=== PATIENT | male | born 1960 | race Asian ===

== ENCOUNTER 2024-02-07 22:19 | Emergency (ER) | payer MEDICAID, SELFPAY ==
[2024-02-07 22:20] VITALS: BMI 27.4
--- NOTE | 2024-02-07 22:30 | PC.NURSE ---
Pt to room 4 at this time from lobby, assumed care.
--- NOTE | 2024-02-07 22:32 | XR_ITS ---
Examination: AP chest single view Technique: AP portable upright chest single view Exam date and time: February 07, 2024 2130 hrs. Indications: Onset shortness of breath today,. Findings: Normal heart size No pneumonia or pulmonary edema Prominent osteopenia Impression: No pneumonia or pulmonary edema
--- NOTE | 2024-02-07 22:32 | XR_ITS ---
Examination: AP lateral soft tissue neck 2 views Technique: Portable AP lateral soft tissue neck 2 views Exam date and time: February 07, 2024 1041 hrs. Indications: Foreign body sensation in the throat today Findings: No prevertebral soft tissue prominence No opaque foreign body seen Significant degenerative disc disease C4-C5, C5-C6 Impression: No opaque foreign body seen
--- NOTE | 2024-02-07 22:33 | EDNOTE_ITS ---
ED General RME/HPI General Chief complaint: General Adult/Misc Complain Stated complaint: CHOKING ON BEEF Time Seen by Provider: 02/07/24 22:30 Arrival date/time: 02/07/24 22:19 RME / HPI RME / HPI narrative: 63-year-old male patient with significant history of hypertension, came in for evaluation regarding foreign body sensation throat. Patient was eating beef, happened about 30 minutes prior to ER visit forgot to chew the beef and swallowed a piece, resulting into choking sensation, unable to get it out. Patient denies any cough, denies any shortness of breath. Denies any other complaints no medication was taken prior to arrival. Patient had multiple episode of foreign body/esophagus stuck in the throat however he will just drink oil and eventually will just go down however this time it did not. Related Data Home Medications ?Medication ?Instructions ?Recorded ?Confirmed simvastatin 40 mg tablet 40 mg PO QDAY 05/11/19 01/31/22 amlodipine 10 mg-benazepril 40 mg 1 cap PO QDAY 05/04/21 01/31/22 capsule diclofenac potassium 50 mg tablet 50 mg PO QDAY PRN Pain 05/04/21 01/31/22 Allergies Allergy/AdvReac Type Severity Reaction Status Date / Time No Known Allergies Allergy Verified 02/07/24 22:20 Review of Systems Review of Systems Narrative Review of Systems: Review of system reviewed and within normal limits except mentioned in HPI ED Exam Narrative Physical exam: VITAL SIGNS: Reviewed. GENERAL APPEARANCE: Alert and interactive, follows commands, no acute distress, HEAD AND FACE: Non-traumatic. ENT: PERRL, pink conjunctivitis, eyelid no trauma, Mucous membrane moist. NECK: Supple, nontender, no nuchal rigidity. CHEST: No tenderness, no crepitus, no paradoxical movement, no retractions. LUNGS: Clear, well ventilated, symmetric, no rales, no wheezing, no ronchi, no stridor, good breath sounds bilaterally. HEART: Regular rate, regular rhythm, no murmur, no gallops. ABDOMEN: Soft, positive bowel sounds, nondistended, no guarding, nontender, no rebound, no masses, RECTAL: Deferred. GENITAL: Deferred. NEUROLOGICAL: Gross motor function intact sensory function intact, Appropriate for age. MUSCULOSKELETAL: low back nontender, full range of motion. EXTREMITIES: Nontender, full range of motion. SKIN: Color pink, dry, no rash, no lacerations, no abrasions, no contusions. LYMPHATICS: Deferred. Course Quality Measures none Orders Category Date Time Status COVID-19 Screening Questionnaire NOW Care 02/07/24 23:08 Active Decision to Admit X1 Care 02/07/24 23:08 Completed EKG (ED ONLY) *Do not use* NOW Care 02/07/24 23:03 Active NPO NOW Care 02/07/24 23:08 Active Diet NPO (NOW) Diet 02/07/24 23:08 Active EKG (ED Only) Stat Exams 02/07/24 23:03 Draft XR chest 1V Stat Exams 02/07/24 22:32 Completed XR soft tissue neck Stat Exams 02/07/24 22:32 Completed CBC [CBC] Stat Lab 02/07/24 23:13 Received CMP [Comprehensive Metabolic Panel] Stat Lab 02/07/24 23:13 Received Diazepam Inj [Valium Inj] Med 02/07/24 22:30 Discontinued 5 mg IVP X1 ONE Glucagon Inj Med 02/07/24 22:30 Discontinued 2 mg IVP X1 ONE Sodium Chloride 0.9% 1000 ml [Ns] 1,000 ml Med 02/07/24 22:30 Active IV 999 mls/hr Vital Signs Vital signs: Vital Signs Temperature 98.7 F 02/07/24 22:35 Pulse Rate 94 02/07/24 22:35 Respiratory Rate 19 02/07/24 22:35 Blood Pressure 134/88 H 02/07/24 22:35 Pulse Oximetry (%) 97 02/07/24 22:35 Oxygen Delivery Method Room Air 02/07/24 22:35 [facility] Patient data External records reviewed:: None Clinical information provided by:: patient and family Social determinants that could affect healthcare access:: none Patient has the following chronic illnesses:: Hypertension How is presenting disease/condition affected by chronic disease/condition?: u neffected by Evaluation data The following diagnostics were reviewed and interpreted by me:: lab results, radiology exam(s) and EKG tracing(s) Lab and/or radiology exams considered but not ordered:: None Interpretation Summary: EKG showed sinus rhythm, ventricular rate of 95 bpm, no ST segment ovation depression noted. Chest x-ray came back unremarkable. X-ray of the soft tissue neck came back unremarkable. Medications Medications considered but not ordered:: None Medication administrations:: Medication Administration History Sodium Chloride (Ns) 1,000 mls @ 999 mls/hr IV .Q1H1M ONE Stop: 02/07/24 23:30 Last Admin: 02/07/24 22:36 Dose: 999 mls/hr Documented By: KG Discontinued Medications Diazepam (Diazepam Inj 5 Mg/Ml Vial 2 Ml) 5 mg IVP X1 ONE Stop: 02/07/24 22:31 Last Admin: 02/07/24 22:47 Dose: 5 mg Documented By: KG Glucagon (Glucagon Inj 1 Mg Vial) 2 mg IVP X1 ONE Stop: 02/07/24 22:31 Last Admin: 02/07/24 22:36 Dose: 2 mg Documented By: KG Glucagon Valium and IV fluids Consultations Consultation(s) initiated? (list below): Yes Consultation #1 (Physician, Specialty, Details): Consulted Dr. Vasquez advised me to admit the patient however patient was able to cough out the foreign body we called back Dr. Vasquez thank you Dr. Vasquez Diagnosis Differential Diagnosis ED Complaint MDM: Foreign body stuck in the esophagus, foreign body sensation, Most likely diagnosis given after review of the tests above:: Foreign body stuck in esophagus, resolved Admission Indicated Admission indicated?: not indicated Explain why admission is indicated or not indicated:: Stable for discharge Admission Request Was there a request for admission?: No Disposition Plan Disposition Plan: Discharge Discharge Attestation Discharge Attestation: The patient and all family members were given an opportunity to ask questions and understood the discharge instructions. Discharge instructions specifically effects, indications for sooner follow up or return to the emergency department, and the expected course of current diagnosis. Patient condition: Stable Medical Decision Making MDM Narrative MDM Narrative: Patient was given glucagon, IV fluids for hydration and Valium, after I talked to Dr. Vasquez, GI specialist on-call, patient was able to spit out the foreign body. Now patient is swallowing normal. Wanted to go home. Differential Diagnosis Differential Diagnosis: Foreign body stuck in the esophagus, foreign body sensation, Lab Data 02/07/24 23:13 02/07/24 23:13 Discharge Plan Plan Patient Disposition: HOME (Self Care) Disposition Comment: Stable Prescriptions/Referrals Prescriptions/Med Rec: No Action simvastatin 40 mg Tablet 40 mg PO QDAY diclofenac potassium 50 mg tablet 50 mg PO QDAY PRN (Reason: Pain) Patient Comments: TAKE ONE TABLET BY MOUTH EVERY DAY amlodipine-benazepril 10-40 mg capsule 1 cap PO QDAY Patient Comments: TAKE ONE CAPSULE BY MOUTH EVERY DAY Problem List Clinical Impression: Foreign body in esophagus Patient/Caregiver Discharge Instructions Discharge Activity: activity as tolerated Education Materials: ED Swallowed Foreign Body (Adult) Additional Instructions: Thank you for the opportunity for serving you today. You are stable for discharged . You are advised to: Follow-up with your PCP in 1 to 2 days and asked for referral to GI specialist Return to ED for worsening of symptoms Increase oral fluids Print Language: Latvian Stand Alone Forms: Adeline Award Info., Patient Portal Info Letter PA/CLINICAL PSYCHIATRIST Supervising Physician PA/CLINICAL PSYCHIATRIST Supervising Physician: MD Ashia
[2024-02-07 22:35] VITALS: BP 134/88; PULSE 94; RESP 19; TEMP 37.1; O2SAT 97
[2024-02-07] MEDS: SODIUM CHLORIDE 0.9% 1000 ML 1,000 ML 999 ML IV (22:36)
[2024-02-07] MEDS: GLUCAGON INJ 1 MG VIAL 2 MG IVP (22:36)
--- NOTE | 2024-02-07 22:43 | PC.NURSE ---
XRAY at the bedside.
[2024-02-07] MEDS: DIAZEPAM INJ 5 MG/ML VIAL 2 ML IVP (22:47)
[2024-02-07 22:51] VITALS: BP 133/85; PULSE 88; RESP 20; O2SAT 95
--- NOTE | 2024-02-07 23:03 | EKG_ITS ---
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
[2024-02-07 23:29] LABS: Basophils % (Auto) 1 % (0-2.5); Eosinophils # (Auto) 0.5 Thou/mm3 (0.0-0.5); Eosinophils % (Auto) 9 % (0-10); Hematocrit 40.1 % (41.0-53.0); Hemoglobin 13.2 g/dL (13.5-16.0); Immature Granulocytes % (Auto) 0 % (0-0); Immature Granulocytes Auto 0.02 Thou/mm3 (0.00-0.00); Lymphocytes % (Auto) 17 % (10-50); Mean Corpuscular HGB Conc 32.9 g/dl (31.0-37.0); Mean Corpuscular Hemoglobin 30.5 pg (25.0-35.0); Mean Corpuscular Volume 93 fL (80-100); Monocytes # (Auto) 0.9 Thou/mm3 (0.0-0.8); Monocytes % (Auto) 15 % (0-12); Neutrophils # (Auto) 3.3 Thou/mm3 (1.8-7.7); Neutrophils % (Auto) 58 % (37-80); Nucleated Red Blood Cell % 0 /100 WBC (0); Platelet Count 231 Thou/mm3 (140-440); RDW Standard Deviation 49.3 fL (35.1-43.9); Red Blood Count 4.33 Miln/mm3 (4.50-5.90); White Blood Count 5.7 Thou/mm3 (3.8-10.6)
[2024-02-07 23:48] VITALS: BP 102/76; PULSE 84; RESP 20; O2SAT 97
[2024-02-07 23:48] LABS: Alanine Aminotransferase 40 U/L (10-49); Albumin/Globulin Ratio 1.6 (1.2-2.2); Alkaline Phosphatase 71 U/L (46-116); Anion Gap 5 (7-16); Aspartate Amino Transferase 22 U/L (0-34); BUN/Creatinine Ratio 15 Ratio (12-20); Bilirubin,Total 0.4 mg/dL (0.3-1.2); Blood Urea Nitrogen 18 mg/dL (9-23); Calcium 8.7 mg/dL (8.3-10.6); Calcium (Corrected) 8.7 mg/dL (8.5-10.1); Carbon Dioxide 25.6 mMol/L (20.0-31.0); Chloride 111 mMol/L (98-107); Creatinine (Component) 1.2 mg/dL (0.6-1.3); Estimated Creatinine Clearance 62.4 mL/min (>60); Globulin 2.5 gm/dL (2.3-3.5); Glucose 118 mg/dL (74-106); Osmolality,Calculated 286 (275-295); Potassium 3.1 mMol/L (3.4-5.1); Sodium 142 mMol/L (136-145); Total Protein 6.5 gm/dL (5.7-8.2); eGFR > 60 See Note
== END 2024-02-07 23:48 | disposition home or self-care (01) ==
LOC: SERX 02-08 00:05
PROVIDERS: Nurse Practitioner Family; Emergency Provider Emergency Medicine
DX: T18.108A Unspecified foreign body in esophagus causing other injury, initial encounter (principal); R06.02 Shortness of breath; W44.9XXA Unspecified foreign body entering into or through a natural orifice, initial encounter; I49.3 Ventricular premature depolarization; I10 Essential (primary) hypertension
CPT/HCPCS: 36415; 70360; 71045; 80053; 85025; 93005; 96361; 96374; 96375; 99284; J1610; J3360; J7030

== ENCOUNTER 2024-03-04 10:10 | Emergency (ER) | payer MEDICAID, SELFPAY ==
[2024-03-04 10:21] VITALS: BP 149/97; PULSE 83; RESP 16; TEMP 36.7; O2SAT 98; BMI 30.3
--- NOTE | 2024-03-04 10:39 | XR_ITS ---
Examination: CT abdomen and pelvis without contrast. Coronal 3-D reconstructions. Sagittal 2-D reconstructions. Date and time of exam: March 04, 2024 1126 hours INDICATIONS: Left lower abdominal pain onset today CTDI: vol (mGy): 10.2 DLP: (mGycm): 620 Technique: Axial images of the abdomen have been obtained, 3 mm slice thickness Intravenous contrast material has not been administered. Low dose protocols were performed. One or more of the following dose reduction techniques were used; automated exposure control, adjustment of the mA and/or KV according to patient size, use of iterative reconstruction technique. Findings: Minimal pericardial effusion No focal liver or splenic lesions Contracted gallbladder No pancreatic or adrenal mass Moderate left renal parenchymal scar formation 20 mm posterior right renal cyst No hydronephrosis or ureteral calculi Aorta normal size Normal appendix Colonic diverticulosis Acute diverticulitis distal descending colon with no peridiverticular abscess Contracted urinary bladder Moderate prostatomegaly Moderate osteopenia IMPRESSION: Acute diverticulitis distal descending colon, no peridiverticular abscess
--- NOTE | 2024-03-04 10:40 | PD.EDRME ---
Rapid Medical Screening Exam RME Arrival date/time: 03/04/24 10:10 63-year-old male presents emergency department complaint of abdominal pain Chief Complaint: Abdominal Pain Time Seen by Provider: 03/04/24 10:14 Vital signs: Vital Signs Temperature 98.1 F 03/04/24 10:21 Pulse Rate 83 03/04/24 10:21 Respiratory Rate 16 03/04/24 10:21 Blood Pressure 149/97 H 03/04/24 10:21 Pulse Oximetry (%) 98 03/04/24 10:21 Oxygen Delivery Method Room Air 03/04/24 10:21
[2024-03-04 11:08] LABS: Basophils # (Auto) 0.1 Thou/mm3 (0.0-0.2); Basophils % (Auto) 1 % (0-2.5); Eosinophils # (Auto) 0.5 Thou/mm3 (0.0-0.5); Eosinophils % (Auto) 5 % (0-10); Hematocrit 45.4 % (41.0-53.0); Hemoglobin 14.7 g/dL (13.5-16.0); Immature Granulocytes % (Auto) 1 % (0-0); Immature Granulocytes Auto 0.06 Thou/mm3 (0.00-0.00); Lymphocytes % (Auto) 10 % (10-50); Mean Corpuscular HGB Conc 32.4 g/dl (31.0-37.0); Mean Corpuscular Hemoglobin 29.8 pg (25.0-35.0); Mean Corpuscular Volume 92 fL (80-100); Monocytes # (Auto) 1.3 Thou/mm3 (0.0-0.8); Monocytes % (Auto) 12 % (0-12); Neutrophils # (Auto) 7.5 Thou/mm3 (1.8-7.7); Neutrophils % (Auto) 72 % (37-80); Nucleated Red Blood Cell % 0 /100 WBC (0); Platelet Count 287 Thou/mm3 (140-440); RDW Standard Deviation 51.2 fL (35.1-43.9); Red Blood Count 4.94 Miln/mm3 (4.50-5.90); White Blood Count 10.5 Thou/mm3 (3.8-10.6)
[2024-03-04 11:24] LABS: Alanine Aminotransferase 19 U/L (10-49); Albumin, Serum 4.7 gm/dL (3.4-4.8); Albumin/Globulin Ratio 1.7 (1.2-2.2); Alcohol, Blood Medical < 3.0 mg/dL (0-10.0); Alkaline Phosphatase 79 U/L (46-116); Anion Gap 7 (7-16); Aspartate Amino Transferase 16 U/L (0-34); BUN/Creatinine Ratio 12 Ratio (12-20); Bilirubin,Total 0.4 mg/dL (0.3-1.2); Blood Urea Nitrogen 12 mg/dL (9-23); Calcium 9.4 mg/dL (8.3-10.6); Calcium (Corrected) 9.4 mg/dL (8.5-10.1); Carbon Dioxide 28.9 mMol/L (20.0-31.0); Chloride 103 mMol/L (98-107); Estimated Creatinine Clearance 78.4 mL/min (>60); Globulin 2.8 gm/dL (2.3-3.5); Glucose 69 mg/dL (74-106); Lipase 54 U/L (12-53); Osmolality,Calculated 275 (275-295); Potassium 3.9 mMol/L (3.4-5.1); Sodium 139 mMol/L (136-145); Total Protein 7.5 gm/dL (5.7-8.2); eGFR > 60 See Note
--- NOTE | 2024-03-04 12:27 | PD.EDABDPN ---
ED Abdominal Pain RME/HPI General Chief Complaint: Abdominal Pain Stated complaint: LEFT LOWER AB PAIN X3 DAYS Time seen by provider: 03/04/24 10:14 Arrival date/time: 03/04/24 10:10 63-year-old male presents emergency department complains of left lower abdominal pain ongoing x 3 days patient reports he went to his primary care doctor yesterday and they gave him a course of antibiotics patient reports he taken his first dose but still has pain Limitations: no limitations RME / HPI RME / HPI narrative: 03/04/24 10:10 63-year-old male presents emergency department complaint of abdominal pain Related Data Home Medications ?Medication ?Instructions ?Recorded ?Confirmed simvastatin 40 mg tablet 40 mg PO QDAY 05/11/19 01/31/22 amlodipine 10 mg-benazepril 40 mg 1 cap PO QDAY 05/04/21 01/31/22 capsule diclofenac potassium 50 mg tablet 50 mg PO QDAY PRN Pain 05/04/21 01/31/22 Previous Rx's ?Medication ?Instructions ?Recorded ibuprofen 800 mg tablet 800 mg PO TID PRN pain #30 tabs 03/04/24 metronidazole 500 mg tablet 500 mg PO TID 7 days #21 tabs 03/04/24 Allergies Allergy/AdvReac Type Severity Reaction Status Date / Time No Known Allergies Allergy Verified 03/04/24 10:11 Review of Systems Review of Systems Systems Reviewed: All systems reviewed, normal except as documented Constitutional Constitutional: Reports system reviewed and no additional complaints, except as documented, Denies fever(s) and Denies headache(s) Eyes Eyes: Reports system reviewed and no additional complaints, except as documented and Denies blurry vision ENT Ears, Nose, Mouth, and Throat: Reports system reviewed and no additional complaints, except as documented, Denies headache(s), Denies nasal congestion and Denies nasal discharge Cardiovascular Cardiovascular: Reports system reviewed and no additional complaints, except as documented, Denies chest pain and Denies dyspnea Respiratory Respiratory: Reports system reviewed and no additional complaints, except as documented, Denies chest congestion, Denies cough and Denies dyspnea Gastrointestinal Gastrointestinal: Reports system reviewed and no additional complaints, except as documented, Reports abdominal pain, Denies loose stools, Denies melena and Denies vomiting Integumentary/Breasts Skin/Breast: Reports system reviewed and no additional complaints, except as documented and Denies rash Neurologic Neurologic: Reports system reviewed and no additional complaints, except as documented, Reports as per HPI and Denies headache(s) Past Medical History Past Medical History NEUROLOGIC: Negative Neurological Disorders or Seizures CARDIAC: Positive Cardiac Disorders, Hypercholesterolemia, Edema and Hypertension; Negative Congestive Heart Failure RESPIRATORY: Negative Chronic Obstructive Pulmonary Disease (COPD) GASTROINTESTINAL: Negative Gastrointestinal Disorders or Hepatitis GENITOURINARY: Negative Genitourinary Disorders or Renal Disease MUSCULOSKELETAL: Positive Musculoskeletal Disorders, Arthritis and Degenerative Joint Disease ENT: Positive Cataracts ENDOCRINE: Negative Endocrine Disorders, Diabetes Mellitus Type 1 or Diabetes Mellitus Type 2 HEMATOLOGIC: Negative Blood Disorders OTHER HISTORY: Positive Mumps; Negative Autoimmune Disease, Blood Transfusions, Blood Transfusion Reaction, Anesthesia Reactions or Cancer Family History FAMILY HISTORY: Positive Family Cancer; Negative Family Respiratory Disorders, Family Cardiac Disorders or Family Anesthesia Reaction Surgical History SURGICAL: Positive Arthroscopy Social History SMOKING STATUS: Current every day smoker SUBSTANCE USE: marijuana, crack/cocaine and amphetamines ED Exam General Limitations: Present no limitations General appearance: Present alert and in no apparent distress Head Head exam: Present atraumatic Eye Eye exam: Present normal appearance, PERRL and EOMI; Absent conjunctival injection ENT ENT exam: Present normal exam, normal oropharynx and mucous membranes moist Neck Neck exam: Present normal inspection, full ROM and trachea midline Chest Chest inspection: Present normal inspection and symmetric chest wall rise Respiratory Respiratory exam: Present normal lung sounds bilaterally; Absent respiratory distress Cardiovascular Cardiovascular exam: Present regular rate, normal rhythm and normal heart sounds Abdominal Exam Abdominal exam: Present soft, tenderness and normal bowel sounds; Absent distention, guarding, rebound, rigidity, Jack's sign or tenderness at McBurney's Point Abdominal tenderness: Present LLQ Extremities Exam Extremities exam: Present normal inspection and full ROM Back Exam Back exam: Present normal inspection and full ROM Neurological Exam Neurological exam: Present alert, oriented X3 and CN II-XII intact Psychiatric Psychiatric exam: Present normal affect and normal mood Skin Skin exam: Present warm, dry, intact and normal color Course Quality Measures none Orders Category Date Time Status CT abdomen pelvis wo con Stat Exams 03/04/24 10:39 Completed Alcohol, Blood Medical Stat Lab 03/04/24 10:46 Completed CBC Stat Lab 03/04/24 10:46 Completed Comprehensive Metabolic Panel Stat Lab 03/04/24 10:46 Completed Drug Screen,Urine Stat Lab 03/04/24 12:33 Completed Lipase Stat Lab 03/04/24 10:46 Completed UA, C/S IF [Urinalysis, C/S if Indicated] Stat Lab 03/04/24 12:33 Completed Lidocaine 1% 20 ml [Xylocaine 1% 20 ML] Med 03/04/24 13:55 Discontinued 2.1 ml INFL X1 ONE cefTRIAXone [Rocephin] Med 03/04/24 13:55 Discontinued 1,000 mg IM X1 ONE Vital Signs Vital signs: Vital Signs Temperature 98.1 F 03/04/24 10:21 Pulse Rate 83 03/04/24 10:21 Respiratory Rate 16 03/04/24 10:21 Blood Pressure 149/97 H 03/04/24 10:21 Pulse Oximetry (%) 98 03/04/24 10:21 Oxygen Delivery Method Room Air 03/04/24 10:21 O2 saturation 98% room air within normal limits Abdominal Pain MDM MDM Narrative MDM Narrative:: 63-year-old male presents emergency department complains of left lower abdominal pain ongoing x 3 days patient reports he went to his primary care doctor yesterday and they gave him a course of antibiotics patient reports he taken his first dose but still has pain On exam patient's left lower abdominal pain patient reports no nausea or vomiting no blood in his stool Lab work as well as CT scan obtained CT scan consistent with diverticulitis Patient given Rocephin here discharged home with Flagyl patient was given a prescription for Cipro yesterday I told him to take it till it is finished Patient discharged home in no distress to follow-up with primary care doctor in the next 24 to 48 hours and for any worsening symptoms to return to the ER immediately Patient data External records reviewed:: [facility] previous records Clinical information provided by:: patient Social determinants that could affect healthcare access:: none Patient has the following chronic illnesses:: None How is presenting disease/condition affected by chronic disease/condition?: no chronic disease Evaluation data The following diagnostics were reviewed and interpreted by me:: lab results and radiology exam(s) Lab and/or radiology exams considered but not ordered:: Labs and radiology obtained Interpretation Summary: Reviewed by me Medications / Prescriptions Medications or Prescriptions considered but not ordered:: Given Medication administrations:: Medication Administration History Discontinued Medications Ceftriaxone Sodium (Ceftriaxone Sod Inj 1,000 Mg Vial) 1,000 mg IM X1 ONE Stop: 03/04/24 13:56 Last Admin: 03/04/24 14:00 Dose: 1,000 mg Documented By: JOY Lidocaine HCl (Lidocaine Hcl 1% 20 Ml Vial) 2.1 ml INFL X1 ONE Stop: 03/04/24 13:56 Last Admin: 03/04/24 14:00 Dose: 2.1 ml Documented By: JOY Given Consultations Consultation(s) initiated? (list below): No Diagnosis Differential diagnosis abdominal pain: abdominal pain, acute appendicitis, diverticulitis, gastroenteritis and pancreatitis Most likely diagnosis given after review of the tests above:: Abdominal pain, diverticulitis Admission Indicated Admission indicated?: not indicated Admission Request Was there a request for admission?: No Disposition Plan Disposition Plan: Discharge Discharge Attestation Discharge Attestation: The patient and all family members were given an opportunity to ask questions and understood the discharge instructions. Discharge instructions specifically effects, indications for sooner follow up or return to the emergency department, and the expected course of current diagnosis. Patient condition: Stable Discharge Plan Plan Patient Disposition: HOME (Self Care) Disposition Comment: Stable Prescriptions/Referrals Prescriptions/Med Rec: New ibuprofen 800 mg tablet 800 mg PO TID PRN (Reason: pain) Qty: 30 0RF metronidazole 500 mg tablet 500 mg PO TID 7 Days Qty: 21 0RF No Action simvastatin 40 mg Tablet 40 mg PO QDAY diclofenac potassium 50 mg tablet 50 mg PO QDAY PRN (Reason: Pain) Patient Comments: TAKE ONE TABLET BY MOUTH EVERY DAY amlodipine-benazepril 10-40 mg capsule 1 cap PO QDAY Patient Comments: TAKE ONE CAPSULE BY MOUTH EVERY DAY Referrals: Karo Desai PA-C [Primary Care Provider] - In 1 week Problem List Clinical Impression: Diverticulitis Patient/Caregiver Discharge Instructions Education Materials: ED Diverticulitis Additional Instructions: Please follow up with your primary care doctor in the next 24-48hrs for any worsening symptoms return here immediately Print Language: Slovenian Stand Alone Forms: Adeline Award Info., Patient Portal Info Letter PA/JESSICA Supervising Physician EILEEN/JESSICA Supervising Physician: Dr Link
[2024-03-04 12:56] LABS: Collection Type, Urine Clean Catch; Squamous Epithelial Cell,Urine 0 /hpf (0-5)
[2024-03-04 13:09] LABS: Amphetamine/Methamp Scrn,U Negative (Negative); Barbiturate Screen,Urine Negative (Negative); Benzodiazepines Screen,Urine Negative (Negative); Benzoylecgonine Screen, Ur Negative (Negative); Fentanyl Screen,Urine Negative (Negative); Opiate Screen,Urine Negative (Negative); THC Screen,Urine Negative (Negative)
[2024-03-04 13:11] LABS: Bacteria,Urine Rare; Bilirubin,Urine Negative (Negative); Blood,Urine Negative (Negative); Clarity,Urine Clear (Clear/Hazy); Color,Urine Lt-Yellow (Lt Yel-Yel); Culture Indicated,Urine Not Indicated; Glucose, Urine Negative (Negative); Ketones,Urine Negative (Negative); Leukocyte Esterase,Urine Negative (Negative); Nitrite,Urine Negative (Negative); Protein,Urine Trace (Neg - Trace); RBC,Urine 3 /hpf (0-3); Specific Gravity,Urine 1.017 (1.001-1.035); Urobilinogen,Urine Negative mg/dL (0.0-1.0); WBC,Urine 1 /hpf (0-5)
[2024-03-04] MEDS: cefTRIAXone SOD INJ 1,000 MG VIAL 1000 MG IM (14:00)
[2024-03-04] MEDS: LIDOCAINE HCL 1% 20 ML VIAL 2.1 ML INFL (14:00)
== END 2024-03-04 14:40 | disposition home or self-care (01) ==
PROVIDERS: Nurse Practitioner Primary Care; Emergency Provider Emergency Medicine; PCP Physician Assistant
DX: K57.32 Diverticulitis of large intestine without perforation or abscess without bleeding (principal)
CPT/HCPCS: 36415; 74176; 80053; 80307; 80320; 81001; 83690; 85025; 96372; 99284; J0696; J3490; G0480

== ENCOUNTER 2024-12-13 14:33 | Emergency (ER) | payer MEDICAID, SELFPAY ==
--- NOTE | 2024-12-13 14:44 | EKG_ITS ---
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
--- NOTE | 2024-12-13 14:44 | XR_ITS ---
Examination: AP chest single view Technique: AP portable semiupright chest single view Date and time: December 13, 2024, 1545 hrs. Indications: Chest pain dizziness today. Findings: Moderate enlargement cardiac contour. Moderate vascular congestion. No orquidea pulmonary edema. No lobar pneumonia. Impression: Moderate enlargement cardiac contour. No pneumonia or pulmonary edema. Moderate vascular congestion.
--- NOTE | 2024-12-13 14:44 | PD.EDDIZZY ---
ED Dizzyness RME/HPI General Chief Complaint: General Adult/Misc Complain Stated Complaint: DIZZINESS, CONFUSION SINCE THIS MORNING Time Seen by Provider: 12/13/24 14:51 Arrival date/time: 12/13/24 14:33 RME / HPI RME / HPI Narrative: DR. SHELTON MAIN ED EVALUATION: 64-year-old male with history of hypertension presents accompanied by his for dizziness that began 30 minutes ago. He denies nausea, vomiting, or prior similar symptoms. reports patient is confused. reports he drinks alcohol, though patient denies alcohol use today. Chart review notes prior positive drug screens for methamphetamine (01/2029) and marijuana. Related Data Home Medications ?Medication ?Instructions ?Recorded ?Confirmed simvastatin 40 mg tablet 40 mg PO QDAY 05/11/19 01/31/22 amlodipine 10 mg-benazepril 40 mg 1 cap PO QDAY 05/04/21 01/31/22 capsule diclofenac potassium 50 mg tablet 50 mg PO QDAY PRN Pain 05/04/21 01/31/22 Previous Rx's ?Medication ?Instructions ?Recorded ibuprofen 800 mg tablet 800 mg PO TID PRN pain #30 tabs 03/04/24 risperidone 0.5 mg tablet 0.5 mg PO BID #60 tabs 12/14/24 (Risperdal) Allergies Allergy/AdvReac Type Severity Reaction Status Date / Time No Known Allergies Allergy Verified 03/04/24 10:11 Review of Systems Review of Systems Systems Reviewed: All systems reviewed, normal except as documented Past Medical History Past Medical History CARDIAC: Positive Cardiac Disorders, Hypercholesterolemia, Edema and Hypertension MUSCULOSKELETAL: Positive Musculoskeletal Disorders, Arthritis and Degenerative Joint Disease ENT: Positive Cataracts OTHER HISTORY: Positive Mumps Family History FAMILY HISTORY: Positive Family Cancer Surgical History SURGICAL: Positive Arthroscopy Social History SMOKING STATUS: Current some day smoker SUBSTANCE USE: marijuana, amphetamines and methamphetamine (01/2019 tested positive) ED Exam Narrative Physical exam: GENERAL APPEARANCE: alert and oriented, well-developed, well-nourished, no acute distress; patient appears intoxicated and has breath odor of alcohol. VITALS: All vitals were reviewed and the pulse ox is 97% on room air, which is normal according to my interpretation. HEENT: Normocephalic, atraumatic; pupils equal, round, reactive to light; EOMI; mucous membranes pink, moist; oropharynx clear NECK: Supple LUNGS: CTABL; no wheezes, no rales, no rhonchi HEART: Regular rate, regular rhythm; normal S1, S2; no murmurs ABDOMEN: non distended; normal BS; soft, no tenderness, no guarding, no rebound; no masses, no organomegaly, no hernia BACK: no CVA tenderness EXTREMITIES: atraumatic; no edema NEUROLOGIC: awake; alert and oriented x4; cranial nerves II-XII grossly intact; no focal sensory or motor deficits PSYCHIATRIC: appropriate mood and affect SKIN: warm, dry, normal color; no rashes Course Quality Measures none Orders Category Date Time Status Metal Work Duct Installer NOW Care 12/13/24 14:44 Completed EKG (ED ONLY) *Do not use* NOW Care 12/13/24 14:[address] head/brain wo con Stat Exams 12/13/24 14:47 Completed EKG (ED Only) Stat Exams 12/13/24 14:44 Draft XR chest 1V portable Stat Exams 12/13/24 14:44 Completed ABG [Arterial Blood Gas] Stat Lab 12/13/24 16:28 Completed Alcohol, Blood Medical Stat Lab 12/13/24 15:20 Completed Ammonia Stat Lab 12/13/24 15:20 Completed B-Type Natriuretic Peptide Stat Lab 12/13/24 15:20 Completed CBC Stat Lab 12/13/24 15:20 Completed Carboxyhemoglobin Stat Lab 12/13/24 17:45 Completed Comprehensive Metabolic Panel Stat Lab 12/13/24 15:20 Completed Drug Screen,Urine Stat Lab 12/13/24 15:02 Completed Magnesium Stat Lab 12/13/24 15:20 Completed Partial Thromboplastin Time Stat Lab 12/13/24 15:20 Completed Prothrombin Time with INR Stat Lab 12/13/24 15:20 Completed Troponin I Stat Lab 12/13/24 15:20 Completed DiphenhydrAMINE INJ [Benadryl Inj] Med 12/13/24 17:17 Discontinued 50 mg IM X1 ONE Haloperidol Lactate [Haldol Inj] Med 12/13/24 17:17 Discontinued 5 mg IM X1 ONE Midazolam Inj [Versed Inj] Med 12/13/24 17:17 Discontinued 2 mg IM X1 ONE risperiDONE [RisperDAL] Med 12/14/24 05:27 Discontinued 1 mg PO X1 ONE Vital Signs Vital signs: Vital Signs Temperature 98 F 12/13/24 14:54 Pulse Rate 125 H 12/13/24 14:54 Respiratory Rate 16 12/13/24 14:54 Blood Pressure 164/104 H 12/13/24 14:54 Pulse Oximetry (%) 99 12/13/24 14:54 Dizziness MDM Narrative MDM Narrative:: 64-year-old male with hypertension presents with dizziness and exam concerning for alcohol intoxication. Although patient denies drinking today, clinical findings suggest otherwise. Plan includes checking labs including CMP, CBC, ethanol level, and urine toxicology, as well as EKG, CXR, and head CT. Differential diagnosis: Alcohol intoxication vs. substance intoxication vs. electrolyte disturbance vs. arrhythmia vs. stroke/TIA. Most likely diagnosis given after review of the tests above: Kusum Adkins am scribing for and in the presence of Dr. Shelton. Patient data External records reviewed:: [facility] previous records Clinical information provided by:: patient and spouse () Social determinants that could affect healthcare access:: substance use (methamphetamine (01/2029) and marijuana) Patient has the following chronic illnesses:: hypertension How is presenting disease/condition affected by chronic disease/condition?: exacerbated by Evaluation data The following diagnostics were reviewed and interpreted by me:: lab results, radiology exam(s) and EKG tracing(s) (EKG interpreted by me: IVCD, Q waves V1 V2 lead III, flattening of the ST segments in V1 and lead III) Lab and/or radiology exams considered but not ordered:: none Interpretation Summary: See MDM narrative above. Medications / Prescriptions Medications or Prescriptions considered but not ordered:: none Medication administrations:: Medication Administration History Discontinued Medications Diphenhydramine HCl (Diphenhydramine Inj 50 Mg/Ml Vial) 50 mg IM X1 ONE Stop: 12/13/24 17:18 Last Admin: 12/13/24 17:38 Dose: 50 mg Documented By: Haloperidol Lactate (Haloperidol Lact Inj 5 Mg/Ml Vial) 5 mg IM X1 ONE Stop: 12/13/24 17:18 Last Admin: 12/13/24 17:39 Dose: 5 mg Documented By: MINNIE Midazolam HCl (Midazolam Inj 1 Mg/Ml Vial 2 Ml) 2 mg IM X1 ONE Stop: 12/13/24 17:18 Last Admin: 12/13/24 17:38 Dose: 2 mg Documented By: MINNIE Risperidone (Risperidone 1 Mg Tablet) 1 mg PO X1 ONE Stop: 12/14/24 05:28 Last Admin: 12/14/24 06:20 Dose: 1 mg Documented By: TALIA see above if any Consultations Consultation(s) initiated? (list below): No Diagnosis Dizziness Differential Diagnosis: other (Alcohol intoxication vs. substance intoxication vs. electrolyte disturbance vs. arrhythmia vs. stroke/TIA.) Most likely diagnosis given after review of the tests above:: No official diagnoses at this time, still pending diagnostic tests. Patient signout to the operation shift supervisor provider. Admission Indicated Admission indicated?: not indicated Explain why admission is indicated or not indicated:: No final disposition plan at this time, still pending diagnostic tests. Patient signout to the operation shift supervisor provider. Admission Request Was there a request for admission?: No Disposition Plan Disposition Plan: other (specify) (Signed out to Dr. Flanagan.) Discharge Plan Prescriptions/Referrals Prescriptions/Med Rec: New risperidone [Risperdal] 0.5 mg tablet 0.5 mg PO BID Qty: 60 1RF No Action simvastatin 40 mg Tablet 40 mg PO QDAY diclofenac potassium 50 mg tablet 50 mg PO QDAY PRN (Reason: Pain) Patient Comments: TAKE ONE TABLET BY MOUTH EVERY DAY amlodipine-benazepril 10-40 mg capsule 1 cap PO QDAY Patient Comments: TAKE ONE CAPSULE BY MOUTH EVERY DAY ibuprofen 800 mg tablet 800 mg PO TID PRN (Reason: pain) Qty: 30 0RF Referrals: No Primary/Family,Physician [Primary Care Provider] - In 1 week Problem List Clinical Impression: Acute psychosis Patient/Caregiver Discharge Instructions Additional Instructions: Reinstitute Risperdal and follow-up with psychiatric services. Print Language: Finnish
--- NOTE | 2024-12-13 14:47 | XR_ITS ---
Examination: CT brain head without contrast. 2-D sagittal coronal reconstructions Date and time of exam:December 13, 2024, 1509 hrs. Indications: Headaches dizziness today CTDI: vol (mGy):53.8. DLP: (mGycm):1113 Technique: Multiple CT axial sections of the brain have been obtained, 5 mm slice thickness. Contrast has not been administered. 2-D sagittal, coronal reconstructions have been obtained Low dose protocols were performed. One or more of the following dose reduction techniques were used; automated exposure control, adjustment of the mA and/or KV according to patient size, use of iterative reconstruction technique. Findings: No significant ventricular enlargement. Intra-axial or extra-axial hemorrhage density is not seen. No mass effect or midline shift Basal cisterns are not remarkable. Fourth ventricle is midline. Cranial vault intact. Impression: Negative for acute hemorrhage, mass effect or midline shift Advise clinical correlation and follow-up accordingly.
[2024-12-13 14:54] VITALS: BP 164/104; PULSE 125; RESP 16; TEMP 36.6; O2SAT 99
[2024-12-13 15:05] VITALS: BP 155/91; PULSE 78; RESP 18; TEMP 36.6; O2SAT 98
[2024-12-13 15:30] LABS: Basophils # (Auto) 0.1 Thou/mm3 (0.0-0.2); Basophils % (Auto) 1 % (0-2.5); Eosinophils # (Auto) 0.4 Thou/mm3 (0.0-0.5); Eosinophils % (Auto) 6 % (0-10); Hematocrit 40.7 % (41.0-53.0); Hemoglobin 13.3 g/dL (13.5-16.0); Immature Granulocytes Auto 0.02 Thou/mm3 (0.00-0.00); Lymphocytes # (Auto) 0.9 Thou/mm3 (1.0-4.8); Lymphocytes % (Auto) 13 % (10-50); Mean Corpuscular HGB Conc 32.7 g/dl (31.0-37.0); Mean Corpuscular Hemoglobin 30.2 pg (25.0-35.0); Mean Corpuscular Volume 93 fL (80-100); Monocytes # (Auto) 0.9 Thou/mm3 (0.0-0.8); Monocytes % (Auto) 13 % (0-12); Neutrophils # (Auto) 4.5 Thou/mm3 (1.8-7.7); Neutrophils % (Auto) 67 % (37-80); Nucleated Red Blood Cell # 0.00 Thou/mm3 (0.00-0.00); Nucleated Red Blood Cell % 0 /100 WBC (0); Platelet Count 243 Thou/mm3 (140-440); RDW Standard Deviation 50.0 fL (35.1-43.9); Red Blood Count 4.40 Miln/mm3 (4.50-5.90); White Blood Count 6.8 Thou/mm3 (3.8-10.6)
[2024-12-13 15:35] LABS: Amphetamine/Methamp Scrn,U Negative (Negative); Barbiturate Screen,Urine Negative (Negative); Benzodiazepines Screen,Urine Negative (Negative); Benzoylecgonine Screen, Ur Negative (Negative); Fentanyl Screen,Urine Negative (Negative); Opiate Screen,Urine Negative (Negative); THC Screen,Urine Negative (Negative)
[2024-12-13 15:46] LABS: INR 1.0 (0.9-1.3); Partial Thromboplastin Time 26.2 Seconds (22.0-36.0); Prothrombin Time 10.7 Seconds (9.0-12.2)
[2024-12-13 15:47] LABS: B-Type Natriuretic Peptide < 20 pg/mL (0-100)
[2024-12-13 15:49] LABS: Ammonia 16 uMol/L (11-32)
[2024-12-13 15:54] LABS: Alanine Aminotransferase 39 U/L (10-49); Albumin, Serum 4.0 gm/dL (3.4-4.8); Albumin/Globulin Ratio 1.7 (1.2-2.2); Alcohol, Blood Medical < 3.0 mg/dL (0-10.0); Alkaline Phosphatase 65 U/L (46-116); Anion Gap 8 (7-16); Aspartate Amino Transferase 43 U/L (0-34); BUN/Creatinine Ratio 10 Ratio (12-20); Bilirubin,Total 0.4 mg/dL (0.3-1.2); Blood Urea Nitrogen 11 mg/dL (9-23); Calcium 9.0 mg/dL (8.3-10.6); Calcium (Corrected) 9.0 mg/dL (8.5-10.1); Carbon Dioxide 26.6 mMol/L (20.0-31.0); Chloride 107 mMol/L (98-107); Creatinine (Component) 1.1 mg/dL (0.6-1.3); Globulin 2.4 gm/dL (2.3-3.5); Glucose 116 mg/dL (74-106); Magnesium 2.4 mg/dL (1.6-2.6); Osmolality,Calculated 283 (275-295); Potassium 3.5 mMol/L (3.4-5.1); Sodium 142 mMol/L (136-145); Total Protein 6.4 gm/dL (5.7-8.2); Troponin I < 0.020 ng/mL (0.0-0.045); eGFR > 60 See Note
[2024-12-13 15:57] VITALS: PULSE 88
--- NOTE | 2024-12-13 16:00 | PC.NURSE ---
PATIENT IN ROOM WITH COMPLAINT OF DIZZINESS AND CONFUSION PER . ALSO STATES THAT PATIENT HAS NOT BEEN SLEEPING FOR THE LAST 3 NIGHTS SO THIS MORNING HE TOOK TRAZADONE AT 0900 AND BECAME EVEN MORE CONFUSED. PATIENT IN ROOM WITH NO COMPLAINT OF PAIN. PATIENT ACTING BIZARRE AND LAUGHING. PATIENT ABLE TO FOLLOW COMMANDS BUT HAS OUTBURSTS. STATES SHE IS CONCERNED THAT PATIENT HAS TAKEN SOME SORT OF DRUGS. PATIENT WILL BE EVALUATED AT THIS TIME.
[2024-12-13 16:35] VITALS: BP 162/92; PULSE 77; RESP 18; TEMP 36.6; O2SAT 97
[2024-12-13 16:36] LABS: Base Excess 2 (-3-3); HCO3 27 mEq/L (20-26); Inspired Oxygen, FIO2 21 %; O2 Saturation 94 % (91-98); PCO2 46 mmHg (32.0-48.0); PO2 68 mmHg (83-108); pH, Arterial 7.39 (7.35-7.45)
[2024-12-13 16:38] LABS: Allen Test Performed/OK; Puncture Site Left Radial
[2024-12-13] MEDS: MIDAZOLAM INJ 1 MG/ML VIAL 2 ML 2 MG IM (17:38)
[2024-12-13] MEDS: HALOPERIDOL LACT INJ 5 MG/ML VIAL IM (17:39)
[2024-12-13 17:41] VITALS: BMI 33.4
[2024-12-13 17:50] LABS: Carboxyhemoglobin 2.3 % (0.5-1.5)
--- NOTE | 2024-12-13 17:58 | PC.NURSE ---
PATIENT ACTING BIZZARE AND TAKING OFF GOWN AND LEADS. PATIENT ALSO PULLED IV OUT AND WALKED TO BACK DOOR. PATIENT ABLE TO BE REDIRECTED BACK TO ROOM. DR. SHELTON MADE AWARE OF PATIENT BEHAVIOR. MEDICATION ORDERED.
[2024-12-13 18:10] VITALS: BP 146/79; PULSE 73; RESP 23; TEMP 36.6; O2SAT 99
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
[2024-12-13 21:12] VITALS: BP 126/74; PULSE 69; RESP 18; TEMP 36.7; O2SAT 100
[2024-12-14 02:31] VITALS: BP 112/71; PULSE 71; RESP 16; TEMP 36.8; O2SAT 99
[2024-12-14 05:57] VITALS: BP 142/93; PULSE 82; RESP 18; TEMP 36.8; O2SAT 99
== END 2024-12-14 06:33 | disposition home or self-care (01) ==
PROVIDERS: Emergency Medicine; Emergency Provider Emergency Medicine
DX: F23 Brief psychotic disorder (principal); I10 Essential (primary) hypertension; R42 Dizziness and giddiness; R41.0 Disorientation, unspecified
CPT/HCPCS: 36415; 36600; 70450; 71045; 80053; 80307; 80320; 82140; 82375; 82803; 83735; 83880; 84484; 85025; 85610; 85730; 93005; 96372; 99284; J1200; J1630; J2250; A9270; G0480

== ENCOUNTER 2024-12-20 03:26 | Emergency (ER) | payer MEDICAID, SELFPAY ==
[2024-12-20] VITALS (8 sets, daily range): BP systolic 99–171; BP diastolic 69–104; PULSE 93–123; RESP 17–22; TEMP 36.6–36.9; O2SAT 96–99
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
[2024-12-20 04:45] LABS: Base Excess 0 (-3-3); HCO3 25 mEq/L (20-26); Inspired Oxygen, FIO2 21 %; O2 Saturation 96 % (91-98); PCO2 40 mmHg (32.0-48.0); PO2 78 mmHg (83-108); pH, Arterial 7.39 (7.35-7.45)
[2024-12-20 04:46] LABS: Allen Test Performed/OK; Puncture Site Right Radial
[2024-12-20 05:04] LABS: Basophils # (Auto) 0.0 Thou/mm3 (0.0-0.2); Basophils % (Auto) 0 % (0-2.5); Eosinophils # (Auto) 0.0 Thou/mm3 (0.0-0.5); Eosinophils % (Auto) 0 % (0-10); Hematocrit 42.9 % (41.0-53.0); Hemoglobin 14.1 g/dL (13.5-16.0); Immature Granulocytes Auto 0.08 Thou/mm3 (0.00-0.00); Lymphocytes # (Auto) 0.6 Thou/mm3 (1.0-4.8); Lymphocytes % (Auto) 5 % (10-50); Mean Corpuscular HGB Conc 32.9 g/dl (31.0-37.0); Mean Corpuscular Hemoglobin 30.1 pg (25.0-35.0); Mean Corpuscular Volume 92 fL (80-100); Monocytes # (Auto) 1.3 Thou/mm3 (0.0-0.8); Monocytes % (Auto) 9 % (0-12); Neutrophils # (Auto) 11.7 Thou/mm3 (1.8-7.7); Neutrophils % (Auto) 85 % (37-80); Nucleated Red Blood Cell # 0.00 Thou/mm3 (0.00-0.00); Nucleated Red Blood Cell % 0 /100 WBC (0); Platelet Count 286 Thou/mm3 (140-440); RDW Standard Deviation 50.1 fL (35.1-43.9); Red Blood Count 4.69 Miln/mm3 (4.50-5.90); White Blood Count 13.7 Thou/mm3 (3.8-10.6)
[2024-12-20 05:10] LABS: Collection Type, Urine Clean Catch
[2024-12-20 05:17] LABS: INR 1.0 (0.9-1.3); Partial Thromboplastin Time 25.5 Seconds (22.0-36.0); Prothrombin Time 11.0 Seconds (9.0-12.2)
[2024-12-20 05:18] LABS: Bilirubin,Urine Negative (Negative); Blood,Urine Trace (Negative); Clarity,Urine Turbid (Clear/Hazy); Color,Urine Yellow (Lt Yel-Yel); Culture Indicated,Urine Not Indicated; Glucose, Urine Negative (Negative); Hyaline Casts,Urine < 1 /hpf (0-1); Ketones,Urine Trace (Negative); Leukocyte Esterase,Urine Negative (Negative); Nitrite,Urine Negative (Negative); PH,Urine 6.0 (5.0-7.0); Protein,Urine 2+ (Neg - Trace); RBC,Urine 4 /hpf (0-3); Specific Gravity,Urine 1.030 (1.001-1.035); Squamous Epithelial Cell,Urine 1 /hpf (0-5); Urobilinogen,Urine 2.0 mg/dL (0.0-1.0); WBC,Urine 5 /hpf (0-5)
[2024-12-20 05:20] LABS: Ammonia 13 uMol/L (11-32)
--- NOTE | 2024-12-20 05:20 | PC.NURSE ---
xray in room
[2024-12-20 05:25] LABS: Alanine Aminotransferase 49 U/L (10-49); Albumin, Serum 4.3 gm/dL (3.4-4.8); Albumin/Globulin Ratio 1.7 (1.2-2.2); Alcohol, Blood Medical < 3.0 mg/dL (0-10.0); Alkaline Phosphatase 66 U/L (46-116); Amylase 80 U/L (30-118); Anion Gap 11 (7-16); Aspartate Amino Transferase 41 U/L (0-34); BUN/Creatinine Ratio 11 Ratio (12-20); Bilirubin,Direct 0.2 mg/dL (0.0-0.3); Bilirubin,Total 0.7 mg/dL (0.3-1.2); Blood Urea Nitrogen 20 mg/dL (9-23); Calcium 9.2 mg/dL (8.3-10.6); Calcium (Corrected) 9.2 mg/dL (8.5-10.1); Carbon Dioxide 24.1 mMol/L (20.0-31.0); Chloride 106 mMol/L (98-107); Creatine Kinase 704 U/L (34-171); Creatinine (Component) 1.8 mg/dL (0.6-1.3); Globulin 2.6 gm/dL (2.3-3.5); Glucose 156 mg/dL (74-106); Magnesium 2.1 mg/dL (1.6-2.6); Osmolality,Calculated 286 (275-295); Potassium 3.7 mMol/L (3.4-5.1); Sodium 141 mMol/L (136-145); Thyroid Stimulating Hormone 1.15 uIU/mL (0.55-4.78); Total Protein 6.9 gm/dL (5.7-8.2); Troponin I 0.030 ng/mL (0.0-0.045); eGFR 42 See Note
[2024-12-20 05:25] LABS: Amphetamine/Methamp Scrn,U Positive (Negative); Barbiturate Screen,Urine Negative (Negative); Benzodiazepines Screen,Urine Negative (Negative); Benzoylecgonine Screen, Ur Negative (Negative); Fentanyl Screen,Urine Negative (Negative); Opiate Screen,Urine Negative (Negative); THC Screen,Urine Positive (Negative)
[2024-12-20 05:31] LABS: B-Type Natriuretic Peptide 26 pg/mL (0-100)
[2024-12-20] MEDS: SODIUM CHLORIDE 0.9% 1000 ML 1,000 ML 999 ML IV (05:49)
[2024-12-20] MEDS: ONDANSETRON INJ 2 MG/ML INJ 2 ML 4 MG IVP (05:49)
[2024-12-20] MEDS: KETOROLAC INJ 30 MG/ML VIAL IVP (05:49)
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
[2024-12-20 09:31] LABS: Alanine Aminotransferase 40 U/L (10-49); Albumin, Serum 3.7 gm/dL (3.4-4.8); Albumin/Globulin Ratio 1.6 (1.2-2.2); Alkaline Phosphatase 58 U/L (46-116); Anion Gap 8 (7-16); Aspartate Amino Transferase 35 U/L (0-34); BUN/Creatinine Ratio 14 Ratio (12-20); Bilirubin,Total 0.6 mg/dL (0.3-1.2); Blood Urea Nitrogen 18 mg/dL (9-23); Calcium 8.2 mg/dL (8.3-10.6); Calcium (Corrected) 8.4 mg/dL (8.5-10.1); Carbon Dioxide 25.8 mMol/L (20.0-31.0); Chloride 108 mMol/L (98-107); Creatine Kinase 707 U/L (34-171); Creatinine (Component) 1.3 mg/dL (0.6-1.3); Globulin 2.3 gm/dL (2.3-3.5); Glucose 102 mg/dL (74-106); Osmolality,Calculated 285 (275-295); Potassium 3.6 mMol/L (3.4-5.1); Sodium 142 mMol/L (136-145); Total Protein 6.0 gm/dL (5.7-8.2); eGFR > 60 See Note
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
[2024-12-20] MEDS: RINGERS LACTATED 1000 ML 1,000 ML 999 ML IV (10:50)
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
[2024-12-20] MEDS: NICOTINE PATCH 21 MG/24 HR PATCH.TD24 TOP (14:19)
--- NOTE | 2024-12-20 14:59 | EKG_ITS ---
[facility] Test Date: 2024-12-20 Pat Name: ALBAN TALBERT Department: Room: - Gender: Male [employer]: : 1960 Requested By: Kimmie Fuchs Order Number: [id number] Reading MD: Kimmie Fuchs Measurements Intervals [place] Rate: 119 P: 59 SC: 165 QRS: 46 QRSD: 96 T: 44 QT: 337 QTc: 475 Interpretive Statements SINUS TACHYCARDIA ANTEROSEPTAL MYOCARDIAL INFARCTION , OF INDETERMINATE AGE [40+ ms Q WAVE IN V1-V4] Compared to ECG 12/13/2024 14:56:55 Myocardial infarct finding now present Sinus rhythm no longer present /store/S0/[id number]/ecg/[id number].pdf
[2024-12-20 15:42] LABS: Troponin I 0.020 ng/mL (0.0-0.045)
--- NOTE | 2024-12-20 16:30 | PC.NURSE ---
CALL REPORT TO [facility] AND SPOKE TO ROMY RN TO WHOM I GAVE REPORT TOO
== END 2024-12-20 16:33 | disposition short-term general hospital (02) ==
PROVIDERS: Emergency Medicine; Emergency Provider Emergency Medicine; PCP Physician Assistant
DX: S22.22XA Fracture of body of sternum, initial encounter for closed fracture (principal); R41.82 Altered mental status, unspecified; N17.9 Acute kidney failure, unspecified; S19.9XXA Unspecified injury of neck, initial encounter; S69.91XA Unspecified injury of right wrist, hand and finger(s), initial encounter; M25.861 Other specified joint disorders, right knee; S80.251A Superficial foreign body, right knee, initial encounter; S49.92XA Unspecified injury of left shoulder and upper arm, initial encounter; M79.631 Pain in right forearm; S49.91XA Unspecified injury of right shoulder and upper arm, initial encounter; S09.93XA Unspecified injury of face, initial encounter; N32.89 Other specified disorders of bladder; R10.9 Unspecified abdominal pain; S29.9XXA Unspecified injury of thorax, initial encounter; M48.061 Spinal stenosis, lumbar region without neurogenic claudication; M51.370 Other intervertebral disc degeneration, lumbosacral region with discogenic back pain only; G95.29 Other cord compression; S89.92XA Unspecified injury of left lower leg, initial encounter; M17.11 Unilateral primary osteoarthritis, right knee; R00.0 Tachycardia, unspecified; V49.40XA Driver injured in collision with unspecified motor vehicles in traffic accident, initial encounter; Z75.1 Person awaiting admission to adequate facility elsewhere
CPT/HCPCS: 51702; 36415; 36600; 70450; 70486; 71045; 71260; 72125; 72128; 72131; 73030; 73060; 73090; 73110; 73120; 73562; 73700; 74177; 80053; 80307; 80320; 81001; 82140; 82150; 82248; 82550; 82803; 83735; 83880; 84443; 84484; 85025; 85610; 85730; 93005; 96361; 96374; 96375; 99285; A4314; A4649; J1885; J2405; J7030; J7120; Q9967; A9270; G0480